=== PATIENT | female | born 1930 | race Caucasian/White ===

== ENCOUNTER 2018-02-02 12:11 | Emergency (ER) | payer MEDICARE ==
--- NOTE | 2018-02-02 13:45 | RAD ---
HISTORY: Fall, head injury COMPARISONS: None TECHNIQUE: Multiple contiguous axial CT scans were obtained of the head without intravenous contrast. FINDINGS: HEMORRHAGE/INFARCT: There is no hemorrhage or acute infarct. MASSES/SHIFT: There is no mass or shift. EXTRA-AXIAL SPACES: There are no extra-axial fluid collections. SULCI AND VENTRICLES: The sulci and ventricles are normal in size and position for the patient's stated age. CEREBRUM: There is hypoattenuation of the periventricular and subcortical white matter. BRAINSTEM: There are no focal parenchymal abnormalities. CEREBELLUM: There are no focal parenchymal abnormalities. VESSELS: The vessels are grossly normal. PARANASAL SINUSES: The paranasal sinuses are clear. ORBITS: The orbits are unremarkable. BONES AND SOFT TISSUE: No bone or soft tissue abnormalities are noted. OTHER: None IMPRESSION: 1. NO ACUTE INTRACRANIAL PATHOLOGY. 2. CHRONIC SMALL VESSEL ISCHEMIC CHANGE.
[2018-02-02 14:45] VITALS: BP 132/74
--- NOTE | 2018-02-02 15:17 | ED ---
Head Injury - HPI Summary HPI Summary: The patient is an 87-year-old female presenting to the ED with the chief complaint of headache injury with a laceration to the posterior scalp. Family is at bedside. Unknown how injury occurred. Patient denies any loss of consciousness. The fall was witnessed. Denies any blurry vision, double vision , memory loss, confusion, neck pain. History of dementia which family states is at baseline currently. Mild amount of bleeding. A 2 cm linear laceration noted to the posterior scalp. She is not on any anticoagulation medications. - History Of Current Complaint Chief Complaint: EDLacSutureRecheck Stated Complaint: FALL/HEAD LAC Time Seen by Provider: 02/02/18 12:36 Hx Obtained From: Patient, Family/Deck Mate Mechanism Of Injury: Direct Blow Onset/Duration: Started Hours Ago Onset of Pain: Minutes Severity Currently: Moderate Severity Initially: Mild Pain Intensity: 0 Pain Scale Used: 0-10 Numeric Location of Head Injury: Occipital Location: Discrete At: - occipital Character: Sharp Aggravating Factor(s): Movement Alleviating Factor(s): Rest, Ice Associated Signs And Symptoms: Negative - Allergies/Home Medications Allergies/Adverse Reactions: Allergies Allergy/AdvReac Type Severity Reaction Status Date / Time codeine Allergy Unknown Verified 02/02/18 12:22 Reaction Details Penicillins Allergy Unknown Verified 02/02/18 12:22 Reaction Details Sulfa (Sulfonamide Allergy Unknown Verified 02/02/18 12:22 Antibiotics) Reaction Details Home Medications: Home Medications Metoprolol Succinate XL TAB* [Toprol XL TAB*] 100 mg PO DAILY 02/02/18 [History Confirmed 02/02/18] Rosuvastatin (NF) [Crestor (NF)] 10 mg PO DAILY 02/02/18 [History Confirmed ] Valsartan/HCTZ 320/25(NF) [Diovan Hct 320/25(NF)] 1 tab PO DAILY 02/02/18 [ History Confirmed 02/02/18] amLODIPine TAB* [Norvasc 5 mg TAB*] 5 mg PO DAILY 02/02/18 [History Confirmed ] PMH/Surg Hx/FS Hx/Imm Hx Previously Healthy: Yes Cardiovascular History: Reports: Hx Hypertension - TREATED - Cancer History Hx Chemotherapy: No Hx Radiation Therapy: No - Immunization History Hx Pertussis Vaccination: No Immunizations Up to Date: Unable to Obtain/Confirm Infectious Disease History: No Infectious Disease History: Denies: Traveled Outside the [place] in Last 30 Days - Social History Occupation: Unemployed, Retired Lives: With Family Alcohol Use: None Hx Substance Use: No Substance Use Type: Reports: None Hx Tobacco Use: No Smoking Status (MU): Never Smoked Tobacco Review of Systems Constitutional: Negative Negative: Fever, Chills, Fatigue, Skin Diaphoresis Eyes: Negative Cardiovascular: Negative Respiratory: Negative Genitourinary: Negative Positive: no symptoms reported, see HPI Musculoskeletal: Negative Positive: Other - 2cm laceration Neurological: Negative All Other Systems Reviewed And Are Negative: Yes Physical Exam Triage Information Reviewed: Yes Vital Signs On Initial Exam: Initial Vitals Temp Pulse Resp BP Pulse Ox 97 F 84 14 164/72 95 02/02/18 12:22 02/02/18 12:22 02/02/18 12:22 02/02/18 12:22 02/02/18 12:22 Vital Signs Reviewed: Yes Appearance: Positive: Well-Appearing, Well-Nourished Skin: Positive: Warm, Skin Color Reflects Adequate Perfusion, Other - laceration to the posterior scalp Head/Face: Positive: Normal Head/Face Inspection Neck: Positive: Supple, No Lymphadenopathy Respiratory/Lung Sounds: Positive: Clear to Auscultation, Breath Sounds Present Cardiovascular: Positive: RRR, Pulses are Symmetrical in both Upper and Lower Extremities Musculoskeletal: Positive: Normal, Strength/ROM Intact Neurological: Positive: Speech Normal Psychiatric: Positive: Normal, Affect/Mood Appropriate Diagnostics - Vital Signs Vital Signs Temp Pulse Resp BP Pulse Ox 02/02/18 14:45 97.7 F 89 14 132/74 97 02/02/18 12:22 97 F 84 14 164/72 95 - Laboratory Lab Statement: Any lab studies that have been ordered have been reviewed, and results considered in the medical decision making process. Head Injury Course/Dx Course Of Treatment: Patient is sent to CT brain for evaluation. No acute findings are noted. The area was cleansed well with normal saline. 2 patti applied. Patient tolerated well. Staple removal in 10 days. Patient and family left without discharge paperwork, this will be mailed to them. Vital signs remained stable. - Diagnoses Provider Diagnoses: Laceration of scalp Discharge - Sign-Out/Discharge Documenting (check all that apply): Discharge/Admit/Transfer - Discharge Plan Condition: Stable Disposition: HOME Patient Education Materials: Staple Care (ED) Referrals: Fide Pickens MD [Primary Care Provider] - Additional Instructions: Staple removal in 10 days Wash hair gently - Billing Disposition and Condition Condition: STABLE Disposition: HOME
== END 2018-02-02 14:45 | disposition home or self-care (01) ==
LOC: ED 12:11
DX: S01.01XA Laceration without foreign body of scalp, initial encounter (principal); W19.XXXA Unspecified fall, initial encounter; Y92.9 Unspecified place or not applicable; Z88.5 Allergy status to narcotic agent; Z88.0 Allergy status to penicillin; Z88.2 Allergy status to sulfonamides
CPT/HCPCS: 12001; 70450; 99281